=== PATIENT | male | born 1965 | race Caucasian/White ===

== ENCOUNTER → 2020-07-28 09:49 | Outpatient (CLI) | payer BC, SELFPAY ==
--- NOTE | ~2020-07-28 | CT_ITS ---
EXAMINATION: CT abdomen pelvis wo/w con DATE: 07/28/2020 10:31 INDICATION: Gross hematuria TECHNIQUE: Computed tomography (CT) of the abdomen and pelvis was performed without intravenous contr ast. CT of the abdomen and pelvis was then performed with a total of 130 mL Omnipaque 350 intravenous contrast using a double-bolus technique for simultaneous opacification of the renal parenchyma and r enal collecting system. The dose-length product (DLP) was 2423.55 mGy-cm. Automated exposure control and iterative reconstruction technique were employed. COMPARISON: None FINDINGS: The lung bases are clear. The heart size is normal. The liver, spleen, pancreas, gallbladde r, and adrenal glands are normal. No stones are identified in the kidneys, ureters, or bladder. There is no hydronephrosis or hydroureter. No suspicious renal or urothelial lesion is identified. A 5 mm lesion of the right kidney is too small to characterize but likely represents a cyst. No pathological ly enlarged abdominal or pelvic lymph nodes are identified. There is no free intraperitoneal gas or e vidence of bowel obstruction. The appendix is normal. There are fat-containing umbilical and bilatera l inguinal hernias. There is mild lumbar spondylosis. IMPRESSION: 1. No CT correlate for the patient's symptoms. Reviewed, dictated and finalized at location A.
[2020-07-28 10:08] LABS: Estimated Glomerular Filt Rate 58
== END ==
DX: R31.0 Gross hematuria (principal); M47.816 Spondylosis without myelopathy or radiculopathy, lumbar region
CPT/HCPCS: 74178; Q9967

== ENCOUNTER 2023-08-26 15:33 | Outpatient (CLI) | payer BC, SELFPAY ==
--- NOTE | ~2023-08-26 | XR_ITS ---
EXAMINATION: XR thoracic spine 3V DATE: 08/26/2023 15:51 INDICATION: Mid back pain. TECHNIQUE: 3 views of thoracic spine on 5 radiographs were obtained. COMPARISON: Chest 2 views 01/18/17 FINDINGS: There is 13 degrees levoscoliosis of upper thoracic spine. Vertebral body heights are mark l. There is mildly decreased disc height at multiple levels in mid thoracic spine. There are endplate osteophytes at most levels. IMPRESSION: 1. Mild thoracic spondylosis. 2. Upper thoracic levoscoliosis. Reviewed, dictated and finalized at location A.
== END 2023-08-26 15:34 ==
DX: M43.04 Spondylolysis, thoracic region (principal); M41.84 Other forms of scoliosis, thoracic region; S23.3XXA Sprain of ligaments of thoracic spine, initial encounter; X58.XXXA Exposure to other specified factors, initial encounter
CPT/HCPCS: 72072

== ENCOUNTER 2024-01-02 10:29 | Outpatient (CLI) | payer OTHER, SELFPAY ==
--- NOTE | ~2024-01-02 | XR_ITS ---
3 VIEWS LUMBAR SPINE Ordering provider: Elsa Bright History: . Other intervertebral disc displacement, lumbar reg . Comparison: None. FINDINGS: VERTEBRAL BODIES:Transitional vertebra is noted. No visible fracture or subluxation. Degenerative ch anges of the spine. DISK SPACES: Narrowing of the disc between the last lumbar vertebrae which may indicate degenerative disc disease. SOFT TISSUES: Normal. IMPRESSION: No acute osseous abnormality lumbar spine. Degenerative disc disease between the last 2 vertebrae. Reviewed, dictated and finalized at location A.
== END 2024-01-02 10:30 | disposition home or self-care (01) ==
DX: M51.26 Other intervertebral disc displacement, lumbar region (principal); M51.369 Other intervertebral disc degeneration, lumbar region without mention of lumbar back pain or lower extremity pain
CPT/HCPCS: 72100